=== PATIENT | female | born 1950 | race Caucasian/White ===

== ENCOUNTER 2017-05-22 22:25 | Emergency (ER) | payer BC, MEDICARE ==
[~2017-05-22] VITALS: Ht 160 cm; Wt 57.2 kg
[2017-05-22 22:35] VITALS: BP 175/96
--- NOTE | 2017-05-22 23:42 | ER.PDOC ---
General Chief Complaint: Sore Throat Stated Complaint: SORE THROAT Time seen by MD: 23:39 Source: patient Exam Limitations: no limitations History of Present Illness Initial Comments Sore throat for 3-4 days, took Z pack for past 3 days without relief. Timing/Duration: gradual Associated Symptoms: mod sore throat Severity: moderate Prior symptoms/Treatment: Similar symptoms previous, Recenly Seen, Treated by Doctor Allergies: Coded Allergies: Sulfa (Sulfonamide Antibiotics) (Unverified Allergy, Unknown, 06/08/15) Uncoded Allergies: steroids (Allergy, Unknown, 05/22/17) Past Medical History Medical History: no pertinent history Surgical History: Social History Smoking: non-smoker Alcohol Use: none Drug Use: none Constitutional: no symptoms reported Throat: see HPI Respiratory: no symptoms reported Cardiovascular: no symptoms reported Gastrointestinal: no symptoms reported Musculoskeletal: no symptoms reported All Other Systems: Reviewed and Negative Physical Exam General Appearance: alert, no distress Head/Neck: head nml inspection, neck nml inspection, trachea midline, no lymphadenopathy, thyroid nml Mouth: lips, gums nml, no drooling, no thrush, membranes nml Throat: pharyngeal erythema Ears/Nose: nml inspection Respiratory: no resp. distress, lungs clear CVS: reg. rate & rhythm, heart sounds nml Abdomen: non-tender, no organomegaly Extremities: non-tender, ROM nml Skin Exam: Normal Color, Warm/Dry NEURO/PSYCH: oriented X3, mood/effect nml Results/Orders Results/Orders Laboratory Tests Test 05/22/17 22:50 Group A Streptococcus Screen NEGATIVE (NEGATIVE) Departure Time of Disposition: 23:40 Disposition: 01 HOME, SELF-CARE Impression: Primary Impression: Acute viral pharyngitis Condition: Stable Referrals: JANETH BOWEN (PCP) PRIMARY CARE PROVIDER Additional Instructions: Aleve Chloraseptic spray OTC as directed F/U with your PCP in next week Duration or Time Spent with Pa: 30 mins REBECCA,IVETTE Rowe MD May 22, 2017 23:42
[2017-05-22 23:49] VITALS: BP 175/96
[2017-05-22] MEDS ORDERED: MYLANTA PO STA (23:58)
[2017-05-22] MEDS ORDERED: MYLANTA ONE (23:59)
[2017-05-23 00:04] VITALS: BP 175/96
== END 2017-05-23 00:01 | disposition home or self-care (01) ==
LOC: ER 22:25
DX: J02.8 Acute pharyngitis due to other specified organisms (principal); Z88.2 Allergy status to sulfonamides
CPT/HCPCS: 87070; 87880; 99284

== ENCOUNTER → 2019-01-06 | Outpatient (CLI) | payer BC | END | disposition home or self-care (01) | LOC: LAB 16:20 | PROVIDERS: ATTEND Nurse Practitioner Adult Health | DX: N39.0 Urinary tract infection, site not specified (principal) | CPT/HCPCS: 87086 ==